=== PATIENT | male | born 1960 | race Two or more races ===

== ENCOUNTER → 2024-03-13 | Outpatient (CLI) | payer BC, SELFPAY ==
--- NOTE | 2024-03-13 14:11 | XR_ITS ---
Examination: Ribs, right, with PA chest, 5 views Technique: Chest PA, RIBS AP, RPO, LPO, AP coned lower ribs 5 views Exam date and time: March 13, 2024 1418 hours INDICATIONS: Right rib pain beginning one month ago Findings: Normal heart size No pneumothorax Moderate osteopenia No acute right rib fractures IMPRESSION: No pneumothorax pulmonary contusion or hemothorax No acute right rib fractures
--- NOTE | 2024-03-13 14:11 | XR_ITS ---
Examination: Thoracic spine 3 views Technique one AP lateral coned lateral upper dorsal spine 3 views Exam date and time: March 13, 2024 at work and 35 hours Comparison January 17, 2018 INDICATIONS: Back pain one month FINDINGS: Moderate osteopenia Upper thoracic dextroscoliosis 8 degrees No thoracic fracture Mild to moderate diffuse thoracic degenerative disc disease IMPRESSION: Mild to moderate diffuse thoracic degenerative disc disease
== END | disposition home or self-care (01) ==
PROVIDERS: PCP Physician Assistant; Referring Provider Physician Assistant; Visit Provider Physician Assistant
DX: R07.81 Pleurodynia (principal); M51.34 Other intervertebral disc degeneration, thoracic region
CPT/HCPCS: 71101; 72072

== ENCOUNTER → 2024-03-16 | Outpatient (CLI) | payer BC, SELFPAY ==
[2024-03-16 09:43] LABS: Alanine Aminotransferase 34 U/L (10-49); Albumin, Serum 4.5 gm/dL (3.4-4.8); Alkaline Phosphatase 50 U/L (46-116); Anion Gap 8 (7-16); Aspartate Amino Transferase 27 U/L (0-34); BUN/Creatinine Ratio 21 Ratio (12-20); Bilirubin,Total 0.6 mg/dL (0.3-1.2); Blood Urea Nitrogen 19 mg/dL (9-23); Calcium 9.9 mg/dL (8.3-10.6); Calcium (Corrected) 9.9 mg/dL (8.5-10.1); Carbon Dioxide 30.9 mMol/L (20.0-31.0); Cardiac Risk Estimate 3.9 RATIO (4.0-6.7); Chloride 105 mMol/L (98-107); Cholesterol 189 mg/dL (132-200); Creatinine (Component) 0.9 mg/dL (0.6-1.3); Globulin 2.2 gm/dL (2.3-3.5); Glucose 108 mg/dL (74-106); HDL Cholesterol 49 mg/dL (40-60); LDL Cholesterol,Calculated 116 mg/dL (0-130); Osmolality,Calculated 290 (275-295); Potassium 4.9 mMol/L (3.4-5.1); Sodium 144 mMol/L (136-145); Thyroid Stimulating Hormone 1.11 uIU/mL (0.55-4.78); Total Protein 6.7 gm/dL (5.7-8.2); Triglycerides 119 mg/dL (30-150); eGFR > 60 See Note
[2024-03-16 10:17] LABS: Glucose Estimated Average 123 mg/dL (80-131); Hemoglobin A1C 5.9 % Hgb (4.8-6.0)
[2024-03-18 19:52] LABS: BCR-ABL1/ABL1 % IS 0.102 (0.000)
[2024-03-19 06:27] LABS: P190 BCR-ABL1 NOT DETECTED; P210 BCR-ABL1 DETECTED
== END | disposition home or self-care (01) ==
PROVIDERS: PCP Physician Assistant; Referring Provider Physician Assistant; Visit Provider Internal Medicine Hematology & Oncology
DX: Z00.00 Encounter for general adult medical examination without abnormal findings (principal); R53.83 Other fatigue; E78.5 Hyperlipidemia, unspecified; D72.829 Elevated white blood cell count, unspecified
CPT/HCPCS: 36415; 80053; 80061; 81206; 81207; 83036; 84443

== ENCOUNTER → 2024-03-19 | Outpatient (CLI) | payer BC, SELFPAY ==
--- NOTE | 2024-03-19 16:00 | XR_ITS ---
Examination: Carotid arterial duplex scan, ultrasound. Date and time of exam: March 19, 2024 1600 hours INDICATIONS: Episodes of right-sided body weakness and pain beginning one month ago Technique: Multiple sonographic images have been obtained of the carotid arteries and vertebral arteries, B-mode/grayscale imaging and Doppler spectral analysis and color flow Peak systolic and diastolic velocities have been recorded. Systolic diastolic ratios have been calculated. Findings: Right peak systolic velocities: Distal internal carotid artery peak systolic velocity is 0.5 M/sec Proximal internal carotid artery peak systolic velocity is 0.9 M/sec Carotid bifurcation peak systolic velocity is 0.8 M/sec External carotid artery peak systolic velocity is 0.7 M/sec Vertebral artery flow is antegrade. Left peak systolic velocities: Distal internal carotid artery peak systolic velocity is 0.7 M/sec Proximal internal carotid artery peak systolic velocity is 0.9 M/sec Carotid bifurcation peak systolic velocity is 1.0 M/sec External carotid artery peak systolic velocity is 0.6 M/sec Vertebral artery flow is antegrade Doppler waveform analysis demonstrates no spectral broadening Impression: Right internal carotid artery demonstrates 0-10% stenosis. Left internal carotid artery demonstrates 0-10% stenosis.
== END | disposition home or self-care (01) ==
LOC: CDIM 03-20 07:21
PROVIDERS: Referring Provider Physician Assistant; Visit Provider Physician Assistant
DX: G25.1 Drug-induced tremor (principal); G81.91 Hemiplegia, unspecified affecting right dominant side
CPT/HCPCS: 93880

== ENCOUNTER → 2024-04-06 | Outpatient (CLI) | payer BC, SELFPAY ==
--- NOTE | 2024-04-06 10:30 | XR_ITS ---
Examination: MRI brain without intravenous contrast. Date and time of exam: April 06, 2024 1050 hours Comparison September 28, 2022 INDICATIONS: Hemiplegia right side tremor difficulty raising the right arm weakness in the right leg Technique: Multiple axial and sagittal images of the brain obtained. Siemens high-resolution 1.5 Marcela short bore scanners utilized. Sagittal sections, T1-weighted, TR 500, TE 14, are performed. Axial sections proton-density and T2-weighted have been obtained. Inversion recovery axial images, TR 9, 260, TE 111, TI 2500. Diffusion weighted images, axial sections, TR 4800, TE 128, B value 1000 Axial sections, ADC map, TR 4800, TE 128 Findings: Enlargement of the sella turcica is not present. The optic chiasm and infundibular are not remarkable. Prepontine and interpeduncular cisterns are not enlarged. There is no localized enlargement of the medulla or sherrell. Fourth ventricle and cerebellar tonsils appear normal in position. No subacute area of hemorrhage density is seen. Mass in the cerebellopontine angle region is not evident. Globes symmetrical. Orbital musculature including medial lateral rectus muscles do not exhibit abnormality. Diffusion-weighted images demonstrate no focus restricted diffusion Increased white matter signal small punctate foci increased signal in the right frontal white matter Mass effect upon the ventricular system is not identified. Impression: Small punctate foci increased signal in the right frontal white matter, accelerated chronic microvascular white matter change versus demyelinating disease, clinical correlation advised
== END | disposition home or self-care (01) ==
LOC: SMRI 10:05
PROVIDERS: PCP Physician Assistant; Referring Provider Physician Assistant; Visit Provider Physician Assistant
DX: R90.82 White matter disease, unspecified (principal)
CPT/HCPCS: 70551

== ENCOUNTER 2024-04-09 15:39 | Outpatient (RCR) | payer BC, SELFPAY ==
--- NOTE | 2024-04-12 22:09 | CTCFLWUP_ITS ---
Patient: LOUIS DAMIAN : 1960 Page 4 of 5 FOLLOW UP NOTE DATE OF SERVICE: 04/12/2024 NAME: LOUIS DAMIAN ACCOUNT: [id number] : 1960 AGE: 63 INTERVAL HISTORY: Patient doing well. On detailed history taking patient endorses that he has not been taking his medication he takes medicines on certain days. He also has been drinking alcohol. ONCOLOGY HISTORY: DIAGNOSIS: Elevated white blood cell count, unspecified(leukocytosis) [ICD10] D72.829 DATE OF DIAGNOSIS: 09/27/2017 STAGE/TNM: BCR-ABL level was 76.681 and WBC count was 1 44,000 TREATMENT HISTORY: Care?Plan Start?Date Cycle Day Intent HISTORY OF PRESENT ILLNESS: Louis Lara is a 63-year-old Yoruba-speaking male who is apparently having bilateral upper quadrant pain for last 4 years. He had a CBC drawn on 09/12/2017 which showed his WBC count to be 142.7 with an absolute neutrophil count of 87,000. Peripheral smear showed metamyelocytes, myelocytes and promyelocytes. On 09/27/2017 patient was seen at [facility] emergency room because of the chest pain. He was found to have atrial fibrillation with rapid ventricular response which was converted with beta blockers. His white count was noted to be 201,000's. Dr. Fritz medical oncologist was consulted who thought the patient may have CML. Patient was started on hydroxyurea thousand milligrams p.o. daily along with allopurinol 300 mg p.o. daily. 10/08/2017: CBC showed a WBC count of 144,000 with an absolute neutrophil count of 86.4 thousand. Hemoglobin was 12.5 and platelet count is 205,000. Peripheral smear again showed metamyelocytes, myelocytes and promyelocytes. Dr. Doll radiation oncology saw the patient recently and continue the hydroxyurea. Patient is to currently taking hydroxyurea 1 g p.o. Daily. 10/17/2017: % BCR?ABL 1/ABL 1 (IS) 76.681 10/17/2017: Bone marrow biopsy and aspiration A. Peripheral blood smear, pathologist review: - Profound leukocytosis with neutrophilia and a left shift, consistent with chronic myeloid leukemia - Rare blasts present, <1% - Eosinophilia and basophilia with an unremarkable morphology - Mild normocytic normochromic anemia and mild anisocytosis Bone Marrow, aspiration with core biopsy: - Chronic myeloid leukemia, BCR-ABL1 positive, chronic phase (see comment) - Iron storage decreased Comment: BCR-ABL1 Translocation t(9;22) with major break point p210 ls detected. Karyotyplng reports no metaphase cells are available for analysls. Flow cytometry also supports the above diagnosis. 10/30/2017: Sprycel 100 mg p.o. daily was ordered. BCR?ABL 1 transcript level: 10/17/2017: 76.681% 02/05/2018: BCR/ABL transcript levels: e14a2(b3a2) transcript 0.8672%, 04/04/2018: BCR/ABL transcript levels: e14a2(b3a2) transcript 3.6122%, 07/04/2018: BCR/ABL E14a2 (b3a2) transcript 0.7098%, 09/09/2018: BCR/ABL E14a2 (b3a2) transcript level less than 0.0032%, 10/29/2018: BCR/ABL transcript levels: transcript level 0.1761%, 04/20/2019: BCR/ABL transcript level 0.1951% 07/17/2019: FISH test for BCR/ABL gene rearrangement is negative. Unfortunately quantitative PCR test for BCR/ABL fusion gene levels is not done. 07/28/2019: EK AG? 07/28/2019: Chest x-ray PA and lateral views? 09/08/2019: BCR/ABL e13a2 (b2a2) <0.0032%, e14a2 (b3a2) 0.2627%, e1a2 <0.0032%. 12/15/2019: BCR/ABL by FISH showed 29% of the nuclei positive for BCR?ABL 1 gene fusion signals. Patient stopped taking Sprycel 2-1/2 months prior to this test. He just stopped taking Sprycel because he was feeling good. He did not have any other explanation. Patient started taking again on 12/15/2019. 03/22/2020: BCR/ABL e13a2 (b2a2) 0.0213%, e14a2 (b3a2) 0.1192%, e1a2 <0.0032%. 06/24/2020:. : BCR/ABL e13a2 (b2a2) 0.0153%, e14a2 (b3a2) 0.0766%, e1a2 <0.0032%. 07/12/2020: Mr. Damian was complaining fatigue, shortness of breath of 2 to 3 weeks duration. Chest x-ray, EKG and echocardiogram were normal. 08/01/2020: Sprycel was decreased to 70 mg p.o. daily 08/26/2020: : BCR/ABL e13a2 (b2a2) 0.0032%, e14a2 (b3a2) 0.0608%, e1a2 <0.0032%. 10/07/2020: : BCR/ABL e13a2 (b2a2) 0.0032%, e14a2 (b3a2) 0.1956%, e1a2 <0.0032%. 12/27/2020: : BCR/ABL e13a2 (b2a2) 0.0032%, e14a2 (b3a2) 0.2948%, e1a2 <0.0032%. 01/23/2021: Sprycel increased 100 mg p.o. daily. 03/01/2021: Sprycel was discontinued due to bilateral eye redness, itching, dryness, blurry vision. 03/04/2021: Bilateral redness of the eye resolved. 03/24/2021: BCR/ABL e13a2 less than 0.0032%, e14a20.0559%, E182 less than 0.0032%. 04/03/2021: Patient was started on imatinib 400 mg p.o. daily. 05/14/2021: Imatinib discontinued due to persistent diarrhea and abdominal pain. 05/16/2021: Sprycel 70 mg p.o. daily started. 05/18/2021: BCR/ABL 1 kinase domain did not show any mutations. 11/02/2021: e14a2 transcript 0.3032%. 01/08/2022: FISH normal. No BCR or ABL 1 gene rearrangement observed. 04/17/2022: e14a2 transcript 0.2242% 07/12/2022: e14a2 transcript 0.2998%. 10/15/2022: e14a2 transcrit 0.2719 10/31/2022: Sprycel 70 mg was discontinued due to persistently elevated BCR/ABL transcript levels. 11/23/2022: Patient was started on Tasigna 300 mg p.o. twice daily. 12/10/2022: Mr. Damian stopped taking Tasigna due to persistent headaches, stomach pains blurring of vision, constipation as well as joint pains. 10/11/2023: BCR/ABL transcript levels negative. (Less than 0.0032%) 10/24/2023 MRI of the lumbar spine with IV contrast 10/29/2023: CT scan of the chest abdomen and pelvis with and without contrast PAST MEDICAL HISTORY: OTHER MEDICAL HISTORY/CONDITIONS: FAMILY HISTORY: SOCIAL HISTORY: MEDICATIONS: 1. multivitamin - 1 tab Daily 2. naproxen - 375 mg 1 tab Twice a Day 3. omeprazole - 20 mg 1 Daily 4. SpryceL - 70 mg 1 tab Daily Medications Last Reconciled by Marion Salamanca MA on 04/09/2024 ALLERGIES: No Known Drug Allergies REVIEW OF SYSTEMS: A complete 14-point review of systems was performed and is negative except as noted in interval history. PHYSICAL EXAMINATION: VITAL SIGNS: GENERAL APPEARANCE: Appears well, in no apparent distress, appropriately interactive. HEENT: Normocephalic, no temporal wasting, normal conjunctiva, no scleral icterus, normal hearing, lips without lesions, neck normal range of motion. CARDIOVASCULAR: Not assessed. PULMONARY: Normal respiratory effort, no respiratory distress or use of accessory muscles, speaking in full sentences, no tachypnea. EXTREMITIES: No pedal edema or cyanosis. SKIN: Normal skin appearance. NEUROLOGIC: Alert and oriented x4. PSHYCHIATRIC: Appropriate affect, mood normal, behavior normal, intact thought and speech. LABORATORY DATA: I have personally reviewed and interpreted each of the patient?s relevant lab tests, abnormal findings are below: Date 03/16/24 ??GLUCOSE,RANDOM?(mg/dL) 108?H ??BLOOD?UREA?NITROGEN?(mg/dL) 19 ??CREATININE?(mg/dL) 0.90 ??SODIUM?(mmol/L) 144 ??POTASSIUM?(mmol/L) 4.9 ??CHLORIDE?(mmol/L) 105 ??CrCl?(CandG)?(ml/min) 87.41 ??AST/SGOT?(Unit/L) 27 ??ALT/SGPT?(Unit/L) 34 ??ALKALINE?PHOSPHATASE?(Unit/L) 50 ??BILIRUBIN,?TOTAL?(mg/dL) 0.6 ??PROTEIN?TOTAL?(gm/dl) 6.7 ??ALBUMIN,?SERUM?(gm/dl) 4.5 ??GLOBULIN?(gm/dl) 2.2?L ??ALBUMIN/GLOBULIN?RATIO 2.0 ??CALCIUM,?SERUM?(mg/dL) 9.9 ??CALCIUM?SERUM?(CORRECTED)?(mg/dL) 9.9 ASSESSMENT/PLAN: BCR/ABL transcript level 0.102 Patient have baseline tremors at rest. According to the Mr. Damian probably has Parkinson's disease as per neurologist. The patient started taking Tasigna 300 mg p.o. twice daily on 11/23/2022. He decided to stop taking Tasigna on 12/10/2022 due to headaches, stomach pains, blurring of vision, constipation as well as joint pains. His BCR/ABL e14a2 transcript level 0.2719% on 10/15/2022. Sprycel 70 mg p.o. daily was discontinued due to persistently currently on Sprycel 70 mg p.o. daily. He has not been compliant with his medication Patient says he want to start taking his Sprycel as prescribed Do not want to do bone marrow biopsy Will do mutation testing on peripheral blood Advised to come back in 3 to 4 weeks to repeat BCR-ABL level unable to tolerate imatinib also. Chronic phase CML. Continue Sprycel 70 mg p.o. daily. CBC CMP BCR-ABL RETURN TO CLINIC: 3 to 4 weeks BILLING AND COMPLIANCE: I reviewed external records from providers outside my specialty as summarized above. I spent a total of 50 minutes on this patient?s care on the day of their visit excluding time spent related to any billed procedures. This time includes time spent with the patient as well as time spent documenting in the medical record, reviewing patients records and tests, obtaining history, placing orders, communicating with other healthcare professionals, counseling the patient, family or caregiver, and/or care coordination for the diagnoses above. Electronically Signed by: Juancarlos Carlos MD T: 10:07 PM CC: Christal?Keila? PCP: Christal Pedraza Referring: Christal Pedraza This document was completed utilizing speech recognition software. Grammatical errors, random word insertions, pronoun errors, and incomplete sentences are an occasional consequence of this system due to software limitations, ambient noise, and hardware issues. Any formal questions or concerns about the content, text or information contained within the body of this dictation should be directly addressed to the provider for clarification.
== END 2024-04-10 23:59 | disposition home or self-care (01) ==
LOC: SCTC 15:39
PROVIDERS: PCP Physician Assistant; Referring Provider Physician Assistant; Visit Provider Internal Medicine Hematology & Oncology
DX: D72.829 Elevated white blood cell count, unspecified (principal)
CPT/HCPCS: 99212; G0463

== ENCOUNTER → 2024-05-12 | Outpatient (CLI) | payer BC, SELFPAY ==
[2024-05-12 10:56] LABS: Basophils % (Auto) 0 % (0-2.5); Eosinophils # (Auto) 0.2 Thou/mm3 (0.0-0.5); Eosinophils % (Auto) 4 % (0-10); Hematocrit 36.8 % (41.0-53.0); Hemoglobin 12.7 g/dL (13.5-16.0); Immature Granulocytes % (Auto) 0 % (0-0); Immature Granulocytes Auto 0.01 Thou/mm3 (0.00-0.00); Lymphocytes # (Auto) 1.5 Thou/mm3 (1.0-4.8); Lymphocytes % (Auto) 31 % (10-50); Mean Corpuscular HGB Conc 34.5 g/dl (31.0-37.0); Mean Corpuscular Hemoglobin 31.4 pg (25.0-35.0); Mean Corpuscular Volume 91 fL (80-100); Monocytes # (Auto) 0.6 Thou/mm3 (0.0-0.8); Monocytes % (Auto) 12 % (0-12); Neutrophils # (Auto) 2.5 Thou/mm3 (1.8-7.7); Neutrophils % (Auto) 53 % (37-80); Nucleated Red Blood Cell % 0 /100 WBC (0); Platelet Count 188 Thou/mm3 (140-440); RDW Standard Deviation 43.5 fL (35.1-43.9); Red Blood Count 4.04 Miln/mm3 (4.50-5.90); White Blood Count 4.8 Thou/mm3 (3.8-10.6)
[2024-05-12 11:06] LABS: Alanine Aminotransferase 41 U/L (10-49); Albumin, Serum 4.4 gm/dL (3.4-4.8); Albumin/Globulin Ratio 2.1 (1.2-2.2); Alkaline Phosphatase 43 U/L (46-116); Anion Gap 7 (7-16); Aspartate Amino Transferase 31 U/L (0-34); BUN/Creatinine Ratio 18 Ratio (12-20); Bilirubin,Total 0.5 mg/dL (0.3-1.2); Blood Urea Nitrogen 14 mg/dL (9-23); Calcium 9.4 mg/dL (8.3-10.6); Calcium (Corrected) 9.4 mg/dL (8.5-10.1); Carbon Dioxide 29.3 mMol/L (20.0-31.0); Chloride 109 mMol/L (98-107); Creatinine (Component) 0.8 mg/dL (0.6-1.3); Globulin 2.1 gm/dL (2.3-3.5); Glucose 118 mg/dL (74-106); Osmolality,Calculated 290 (275-295); Potassium 4.3 mMol/L (3.4-5.1); Sodium 145 mMol/L (136-145); Total Protein 6.5 gm/dL (5.7-8.2); eGFR > 60 See Note
[2024-05-15 23:35] LABS: BCR-ABL1/ABL1 % IS 0.034 (0.000)
[2024-05-18 06:49] LABS: P210 BCR-ABL1 DETECTED
== END | disposition home or self-care (01) ==
LOC: SCTO 09:19
PROVIDERS: PCP Physician Assistant; Referring Provider Internal Medicine Hematology & Oncology; Visit Provider Internal Medicine Hematology & Oncology
DX: D72.829 Elevated white blood cell count, unspecified (principal)
CPT/HCPCS: 36415; 80053; 81206; 85025

== ENCOUNTER 2024-05-18 15:51 | Outpatient (RCR) | payer BC, SELFPAY ==
--- NOTE | 2024-06-01 00:12 | CTCFLWUP_ITS ---
Patient: LOUIS DAMIAN : 1960 Page 4 of 6 FOLLOW UP NOTE DATE OF SERVICE: 05/18/2024 NAME: LOUIS DAMIAN ACCOUNT: [id number] : 1960 AGE: 63 INTERVAL HISTORY: Patient doing well. On detailed history taking patient endorses that he has not been taking his medication he takes medicines on certain days. He also has been drinking alcohol. ONCOLOGY HISTORY:?[facility] On[facility] Hx? DIAGNOSIS: Elevated white blood cell count, unspecified(leukocytosis) [ICD10] D72.829 DATE OF DIAGNOSIS: 09/27/2017 STAGE/TNM: BCR-ABL level was 76.681 and WBC count was 1 44,000 TREATMENT HISTORY: Care?Plan Start?Date Cycle Day Intent HISTORY OF PRESENT ILLNESS: Louis Lara is a 63-year-old Kinyarwanda-speaking male who is apparently having bilateral upper quadrant pain for last 4 years. He had a CBC drawn on 09/12/2017 which showed his WBC count to be 142.7 with an absolute neutrophil count of 87,000. Peripheral smear showed metamyelocytes, myelocytes and promyelocytes. On 09/27/2017 patient was seen at [facility] emergency room because of the chest pain. He was found to have atrial fibrillation with rapid ventricular response which was converted with beta blockers. His white count was noted to be 201,000's. Dr. Fritz medical oncologist was consulted who thought the patient may have CML. Patient was started on hydroxyurea thousand milligrams p.o. daily along with allopurinol 300 mg p.o. daily. 10/08/2017: CBC showed a WBC count of 144,000 with an absolute neutrophil count of 86.4 thousand. Hemoglobin was 12.5 and platelet count is 205,000. Peripheral smear again showed metamyelocytes, myelocytes and promyelocytes. Dr. Doll radiation oncology saw the patient recently and continue the hydroxyurea. Patient is to currently taking hydroxyurea 1 g p.o. Daily. 10/17/2017: % BCR?ABL 1/ABL 1 (IS) 76.681 10/17/2017: Bone marrow biopsy and aspiration A. Peripheral blood smear, pathologist review: - Profound leukocytosis with neutrophilia and a left shift, consistent with chronic myeloid leukemia - Rare blasts present, <1% - Eosinophilia and basophilia with an unremarkable morphology - Mild normocytic normochromic anemia and mild anisocytosis Bone Marrow, aspiration with core biopsy: - Chronic myeloid leukemia, BCR-ABL1 positive, chronic phase (see comment) - Iron storage decreased Comment: BCR-ABL1 Translocation t(9;22) with major break point p210 ls detected. Karyotyplng reports no metaphase cells are available for analysls. Flow cytometry also supports the above diagnosis. 10/30/2017: Sprycel 100 mg p.o. daily was ordered. BCR?ABL 1 transcript level: 10/17/2017: 76.681% 02/05/2018: BCR/ABL transcript levels: e14a2(b3a2) transcript 0.8672%, 04/04/2018: BCR/ABL transcript levels: e14a2(b3a2) transcript 3.6122%, 07/04/2018: BCR/ABL E14a2 (b3a2) transcript 0.7098%, 09/09/2018: BCR/ABL E14a2 (b3a2) transcript level less than 0.0032%, 10/29/2018: BCR/ABL transcript levels: transcript level 0.1761%, 04/20/2019: BCR/ABL transcript level 0.1951% 07/17/2019: FISH test for BCR/ABL gene rearrangement is negative. Unfortunately quantitative PCR test for BCR/ABL fusion gene levels is not done. 07/28/2019: EK AG? 07/28/2019: Chest x-ray PA and lateral views? 09/08/2019: BCR/ABL e13a2 (b2a2) <0.0032%, e14a2 (b3a2) 0.2627%, e1a2 <0.0032%. 12/15/2019: BCR/ABL by FISH showed 29% of the nuclei positive for BCR?ABL 1 gene fusion signals. Patient stopped taking Sprycel 2-1/2 months prior to this test. He just stopped taking Sprycel because he was feeling good. He did not have any other explanation. Patient started taking again on 12/15/2019. 03/22/2020: BCR/ABL e13a2 (b2a2) 0.0213%, e14a2 (b3a2) 0.1192%, e1a2 <0.0032%. 06/24/2020:. : BCR/ABL e13a2 (b2a2) 0.0153%, e14a2 (b3a2) 0.0766%, e1a2 <0.0032%. 07/12/2020: Mr. Damian was complaining fatigue, shortness of breath of 2 to 3 weeks duration. Chest x-ray, EKG and echocardiogram were normal. 08/01/2020: Sprycel was decreased to 70 mg p.o. daily 08/26/2020: : BCR/ABL e13a2 (b2a2) 0.0032%, e14a2 (b3a2) 0.0608%, e1a2 <0.0032%. 10/07/2020: : BCR/ABL e13a2 (b2a2) 0.0032%, e14a2 (b3a2) 0.1956%, e1a2 <0.0032%. 12/27/2020: : BCR/ABL e13a2 (b2a2) 0.0032%, e14a2 (b3a2) 0.2948%, e1a2 <0.0032%. 01/23/2021: Sprycel increased 100 mg p.o. daily. 03/01/2021: Sprycel was discontinued due to bilateral eye redness, itching, dryness, blurry vision. 03/04/2021: Bilateral redness of the eye resolved. 03/24/2021: BCR/ABL e13a2 less than 0.0032%, e14a20.0559%, E182 less than 0.0032%. 04/03/2021: Patient was started on imatinib 400 mg p.o. daily. 05/14/2021: Imatinib discontinued due to persistent diarrhea and abdominal pain. 05/16/2021: Sprycel 70 mg p.o. daily started. 05/18/2021: BCR/ABL 1 kinase domain did not show any mutations. 11/02/2021: e14a2 transcript 0.3032%. 01/08/2022: FISH normal. No BCR or ABL 1 gene rearrangement observed. 04/17/2022: e14a2 transcript 0.2242% 07/12/2022: e14a2 transcript 0.2998%. 10/15/2022: e14a2 transcrit 0.2719 10/31/2022: Sprycel 70 mg was discontinued due to persistently elevated BCR/ABL transcript levels. 11/23/2022: Patient was started on Tasigna 300 mg p.o. twice daily. 12/10/2022: Mr. Damian stopped taking Tasigna due to persistent headaches, stomach pains blurring of vision, constipation as well as joint pains. 10/11/2023: BCR/ABL transcript levels negative. (Less than 0.0032%) 10/24/2023 MRI of the lumbar spine with IV contrast 10/29/2023: CT scan of the chest abdomen and pelvis with and without contrast PAST MEDICAL HISTORY: OTHER MEDICAL HISTORY/CONDITIONS: FAMILY HISTORY: ?[facility] Hx? SOCIAL HISTORY: MEDICATIONS: 1. multivitamin - 1 tab Daily 2. naproxen - 375 mg 1 tab Twice a Day 3. omeprazole - 20 mg 1 Daily 4. SpryceL - 70 mg 1 tab Daily?Pal[facility]ra Meds? Medications Last Reconciled by Marion Salamanca MA on 05/18/2024 ALLERGIES: No Known Drug Allergies REVIEW OF SYSTEMS: A complete 14-point review of systems was performed and is negative except as noted in interval history. PHYSICAL EXAMINATION:?[facility] PE? VITAL SIGNS: PAIN: 0 - No pain GENERAL APPEARANCE: Appears well, in no apparent distress, appropriately interactive. HEENT: Normocephalic, no temporal wasting, normal conjunctiva, no scleral icterus, normal hearing, lips without lesions, neck normal range of motion. CARDIOVASCULAR: Not assessed. PULMONARY: Normal respiratory effort, no respiratory distress or use of accessory muscles, speaking in full sentences, no tachypnea. EXTREMITIES: No pedal edema or cyanosis. SKIN: Normal skin appearance. NEUROLOGIC: Alert and oriented x4. PSHYCHIATRIC: Appropriate affect, mood normal, behavior normal, intact thought and speech. LABORATORY DATA: I have personally reviewed and interpreted each of the patient?s relevant lab tests, abnormal findings are below: Date 10/24/23 03/16/24 05/12/24 ??WHITE?BLOOD?COUNT?(Thou/mm3) 6.6 ? 4.8 ??RED?BLOOD?COUNT?(Miln/mm3) 4.13?L ? 4.04?L ??HEMOGLOBIN?(gm/dl) 12.8?L ? 12.7?L ??HEMATOCRIT?(%) 37.6?L ? 36.8?L ??PLATELET?COUNT?(Thou/mm3) 210 ? 188 ??NEUTROPHILS?%,?AUTO?(%) 59 ? 53 ??LYMPH?%,?AUTO?(%) 26 ? 31 ??NEUTROPHILS,?AUTO?(Thou/mm3) 3.9 ? 2.5 ??GLUCOSE,RANDOM?(mg/dL) ? 108?H 118?H ??BLOOD?UREA?NITROGEN?(mg/dL) ? 19 14 ??CREATININE?(mg/dL) ? 0.90 0.80 ??SODIUM?(mmol/L) ? 144 145 ??POTASSIUM?(mmol/L) ? 4.9 4.3 ??CHLORIDE?(mmol/L) ? 105 109?H ??CrCl?(CandG)?(ml/min) ? 87.41 98.83 ??AST/SGOT?(Unit/L) ? 27 31 ??ALT/SGPT?(Unit/L) ? 34 41 ??ALKALINE?PHOSPHATASE?(Unit/L) ? 50 43?L ??BILIRUBIN,?TOTAL?(mg/dL) ? 0.6 0.5 ??PROTEIN?TOTAL?(gm/dl) ? 6.7 6.5 ??ALBUMIN,?SERUM?(gm/dl) ? 4.5 4.4 ??GLOBULIN?(gm/dl) ? 2.2?L 2.1?L ??ALBUMIN/GLOBULIN?RATIO ? 2.0 2.1 ??CALCIUM,?SERUM?(mg/dL) ? 9.9 9.4 ??CALCIUM?SERUM?(CORRECTED)?(mg/dL) ? 9.9 9.4 ASSESSMENT/PLAN:?[facility] Assessment/Plan? BCR/ABL transcript level 0.102 Patient have baseline tremors at rest. According to the Mr. Damian probably has Parkinson's disease as per neurologist. The patient started taking Tasigna 300 mg p.o. twice daily on 11/23/2022. He decided to stop taking Tasigna on 12/10/2022 due to headaches, stomach pains, blurring of vision, constipation as well as joint pains. His BCR/ABL e14a2 transcript level 0.2719% on 10/15/2022. Sprycel 70 mg p.o. daily was discontinued due to persistently currently on Sprycel 70 mg p.o. daily. He has not been compliant with his medication Patient says he want to start taking his Sprycel as prescribed Do not want to do bone marrow biopsy Will do mutation testing on peripheral blood Advised to come back in 3 to 4 weeks to repeat BCR-ABL level unable to tolerate imatinib also. Chronic phase CML. Continue Sprycel 70 mg p.o. daily. CBC CMP BCR-ABL RETURN TO CLINIC: BILLING AND COMPLIANCE: I reviewed external records from providers outside my specialty as summarized above. I spent a total of 50 minutes on this patient?s care on the day of their visit excluding time spent related to any billed procedures. This time includes time spent with the patient as well as time spent documenting in the medical record, reviewing patients records and tests, obtaining history, placing orders, communicating with other healthcare professionals, counseling the patient, family or caregiver, and/or care coordination for the diagnoses above. Electronically Signed by: Juancarlos Carlos MD T: 12:10 AM CC: Christal?Keila? PCP: Christal Pedraza Referring: Christal Pedraza This document was completed utilizing speech recognition software. Grammatical errors, random word insertions, pronoun errors, and incomplete sentences are an occasional consequence of this system due to software limitations, ambient noise, and hardware issues. Any formal questions or concerns about the content, text or information contained within the body of this dictation should be directly addressed to the provider for clarification.
== END 2024-06-08 23:59 | disposition home or self-care (01) ==
LOC: SCTC 15:51
PROVIDERS: PCP Physician Assistant; Referring Provider Physician Assistant; Visit Provider Internal Medicine Hematology & Oncology
DX: C92.10 Chronic myeloid leukemia, BCR/ABL-positive, not having achieved remission (principal)
CPT/HCPCS: 99212; G0463

== ENCOUNTER → 2024-06-16 | Outpatient (CLI) | payer BC, SELFPAY ==
--- NOTE | 2024-06-16 12:30 | XR_ITS ---
EXAMINATION: PET/CT FUSION SKULL TO THIGH EXAM DATE AND TIME: June 16, 2024 1309 hrs. Comparison MRI brain April 06, 2024, CT chest October 29, 2023 Diagnosis lymphocytosis, leukemia restaging post treatment CTDI:vol (mGy) 7.34 DLP: (mGycm) 761.8 PROCEDURE: 16.6 mCi FDG was administered intravenously To allow for distribution and uptake of radiotracer, the patient was allowed to rest quietly in a shielded room. Imaging was performed on an integrated 16-slice PET/CT scanner, with scanning from the skull base to the mid thigh. Serum blood glucose at the time of the injection was measured 106 mg/dL. CT scanning was performed without oral or intravenous contrast material. FINDINGS: Head and Neck: There is no fior hypermetabolism in the neck. The visualized portions of the brain are normal in appearance on CT. Chest: There is no fior hypermetabolism in the chest. There are no pulmonary nodules. Abdomen and Pelvis: There is no fior hypermetabolism in retroperitoneal or pelvic chains. The spleen is normal in size and FDG avidity. Suspicious for mild right varicocele Fat-containing hernia Musculoskeletal: Marrow uptake is within normal range. IMPRESSION: No mediastinal, abdominal or pelvic lymphadenopathy
== END | disposition home or self-care (01) ==
PROVIDERS: Referring Provider Internal Medicine Hematology & Oncology; Visit Provider Internal Medicine Hematology & Oncology
DX: D72.829 Elevated white blood cell count, unspecified (principal)
CPT/HCPCS: 78815; A9552

== ENCOUNTER → 2024-07-22 | Outpatient (CLI) | payer BC, SELFPAY ==
[2024-07-22 09:25] LABS: Basophils % (Auto) 0 % (0-2.5); Eosinophils # (Auto) 0.2 Thou/mm3 (0.0-0.5); Eosinophils % (Auto) 4 % (0-10); Hematocrit 36.1 % (41.0-53.0); Hemoglobin 12.3 g/dL (13.5-16.0); Immature Granulocytes % (Auto) 0 % (0-0); Immature Granulocytes Auto 0.01 Thou/mm3 (0.00-0.00); Lymphocytes # (Auto) 1.5 Thou/mm3 (1.0-4.8); Lymphocytes % (Auto) 30 % (10-50); Mean Corpuscular HGB Conc 34.1 g/dl (31.0-37.0); Mean Corpuscular Volume 91 fL (80-100); Monocytes # (Auto) 0.6 Thou/mm3 (0.0-0.8); Monocytes % (Auto) 12 % (0-12); Neutrophils # (Auto) 2.5 Thou/mm3 (1.8-7.7); Neutrophils % (Auto) 53 % (37-80); Nucleated Red Blood Cell % 0 /100 WBC (0); Platelet Count 189 Thou/mm3 (140-440); RDW Standard Deviation 43.5 fL (35.1-43.9); Red Blood Count 3.97 Miln/mm3 (4.50-5.90); White Blood Count 4.8 Thou/mm3 (3.8-10.6)
[2024-07-22 09:26] LABS: Glucose Estimated Average 108 mg/dL (80-131); Hemoglobin A1C 5.4 % Hgb (4.8-6.0)
[2024-07-22 09:28] LABS: Alanine Aminotransferase 47 U/L (10-49); Albumin, Serum 4.4 gm/dL (3.4-4.8); Albumin/Globulin Ratio 1.8 (1.2-2.2); Alkaline Phosphatase 50 U/L (46-116); Anion Gap 9 (7-16); Aspartate Amino Transferase 33 U/L (0-34); BUN/Creatinine Ratio 18 Ratio (12-20); Bilirubin,Total 0.4 mg/dL (0.3-1.2); Blood Urea Nitrogen 16 mg/dL (9-23); Calcium 8.8 mg/dL (8.3-10.6); Calcium (Corrected) 8.8 mg/dL (8.5-10.1); Carbon Dioxide 28.1 mMol/L (20.0-31.0); Chloride 107 mMol/L (98-107); Creatinine (Component) 0.9 mg/dL (0.6-1.3); Globulin 2.5 gm/dL (2.3-3.5); Glucose 123 mg/dL (74-106); LDH (Lactate Dehydrogenase) 180 U/L (120-246); Osmolality,Calculated 289 (275-295); Potassium 4.4 mMol/L (3.4-5.1); Sodium 144 mMol/L (136-145); Total Protein 6.9 gm/dL (5.7-8.2); Uric Acid 3.6 mg/dL (3.7-9.2); eGFR > 60 See Note
[2024-07-25 19:48] LABS: BCR-ABL1/ABL1 % IS 0.038 (0.000)
[2024-07-27 07:33] LABS: P210 BCR-ABL1 DETECTED
== END | disposition home or self-care (01) ==
LOC: COPL 08:22
PROVIDERS: PCP Physician Assistant; Referring Provider Physician Assistant; Visit Provider Internal Medicine Hematology & Oncology
DX: D72.829 Elevated white blood cell count, unspecified (principal); R73.03 Prediabetes
CPT/HCPCS: 36415; 80053; 81206; 83036; 83615; 84550; 85025

== ENCOUNTER 2024-08-24 15:45 | Outpatient (RCR) | payer BC, SELFPAY ==
--- NOTE | 2024-08-25 00:09 | CTCFLWUP_ITS ---
Patient: LOUIS DAMIAN : 1960 Page 6 of 7 FOLLOW UP NOTE DATE OF SERVICE: 08/24/2024 NAME: LOUIS DAMIAN ACCOUNT: [id number] : 1960 AGE: 64 INTERVAL HISTORY: Subjective: Chief Complaint Follow-up for chronic myeloid leukemia (CML) treatment with Sprycel History of Present Illness Louis Damian is a male patient with a history of chronic myeloid leukemia (CML) presenting for follow-up. He has been prescribed Sprycel for his CML management. The patient's medication adherence has improved since the last visit. Previously, he was not taking his medications regularly due to fear, but now he is taking Sprycel every day as prescribed. His BCR-ABL level has decreased from 0.1 to 0.038, suggesting a positive response to treatment. The patient reports having varicocele , which were incidentally noted on a recent imaging study. He is scheduled for a laparoscopy and colonoscopy tomorrow morning. Regarding his gastrointestinal health, the patient was previously taking omeprazole for stomach issues. However, his doctor changed the medication to cimetidine due to concerns about calcium absorption. The patient now takes cimetidine at 7 AM and Sprycel at 1 or 2 PM to avoid potential drug interactio ns. He also takes calcium with vitamin D supplements at 9 AM with his breakfast. Medications and Supplements - Sprycel - Taking every day - Used for CML treatment - Omeprazole - Previously taken for stomach issues - Discontinued due to concerns about calcium absorption - Cimetidine - Taking at 7 a.m. - Replaced omeprazole - Calcium with Vitamin D - Taking daily - Multivitamins - Taking at 9 a.m. with breakfast Review of Systems Gastrointestinal: Positive for stomach issues (implied by use of omeprazole). Objective: Laboratory, Imaging, and Diagnostic Test Results - Date: July 2024 - BCR-ABL: 5.038% - Previous results: - BCR-ABL: 0.1%, 0.034%, 0.038% (dates not specified) - DaTscan: Negative (date not specified) ONCOLOGY HISTORY: DIAGNOSIS: Elevated white blood cell count, unspecified(leukocytosis) [ICD10] D72.829 DATE OF DIAGNOSIS: 09/27/2017 STAGE/TNM: BCR-ABL level was 76.681 and WBC count was 1 44,000 TREATMENT HISTORY: Care?Plan Start?Date Cycle Day Intent HISTORY OF PRESENT ILLNESS: Louis Lara is a 64-year-old Kinyarwanda-speaking male who is apparently having bilateral upper quadrant pain for last 4 years. He had a CBC drawn on 09/12/2017 which showed his WBC count to be 142.7 with an absolute neutrophil count of 87,000. Peripheral smear showed metamyelocytes, myelocytes and promyelocytes. On 09/27/2017 patient was seen at [facility] emergency room because of the chest pain. He was found to have atrial fibrillation with rapid ventricular response which was converted with beta blockers. His white count was noted to be 201,000's. Dr. Fritz medical oncologist was consulted who thought the patient may have CML. Patient was started on hydroxyurea thousand milligrams p.o. daily along with allopurinol 300 mg p.o. daily. 10/08/2017: CBC showed a WBC count of 144,000 with an absolute neutrophil count of 86.4 thousand. Hemoglobin was 12.5 and platelet count is 205,000. Peripheral smear again showed metamyelocytes, myelocytes and promyelocytes. Dr. Doll radiation oncology saw the patient recently and continue the hydroxyurea. Patient is to currently taking hydroxyurea 1 g p.o. Daily. 10/17/2017: % BCR?ABL 1/ABL 1 (IS) 76.681 10/17/2017: Bone marrow biopsy and aspiration A. Peripheral blood smear, pathologist review: - Profound leukocytosis with neutrophilia and a left shift, consistent with chronic myeloid leukemia - Rare blasts present, <1% - Eosinophilia and basophilia with an unremarkable morphology - Mild normocytic normochromic anemia and mild anisocytosis Bone Marrow, aspiration with core biopsy: - Chronic myeloid leukemia, BCR-ABL1 positive, chronic phase (see comment) - Iron storage decreased Comment: BCR-ABL1 Translocation t(9;22) with major break point p210 ls detected. Karyotyplng reports no metaphase cells are available for analysls. Flow cytometry also supports the above diagnosis. 10/30/2017: Sprycel 100 mg p.o. daily was ordered. BCR?ABL 1 transcript level: 10/17/2017: 76.681% 02/05/2018: BCR/ABL transcript levels: e14a2(b3a2) transcript 0.8672%, 04/04/2018: BCR/ABL transcript levels: e14a2(b3a2) transcript 3.6122%, 07/04/2018: BCR/ABL E14a2 (b3a2) transcript 0.7098%, 09/09/2018: BCR/ABL E14a2 (b3a2) transcript level less than 0.0032%, 10/29/2018: BCR/ABL transcript levels: transcript level 0.1761%, 04/20/2019: BCR/ABL transcript level 0.1951% 07/17/2019: FISH test for BCR/ABL gene rearrangement is negative. Unfortunately quantitative PCR test for BCR/ABL fusion gene levels is not done. 07/28/2019: EK AG? 07/28/2019: Chest x-ray PA and lateral views? 09/08/2019: BCR/ABL e13a2 (b2a2) <0.0032%, e14a2 (b3a2) 0.2627%, e1a2 <0.0032%. 12/15/2019: BCR/ABL by FISH showed 29% of the nuclei positive for BCR?ABL 1 gene fusion signals. Patient stopped taking Sprycel 2-1/2 months prior to this test. He just stopped taking Sprycel because he was feeling good. He did not have any other explanation. Patient started taking again on 12/15/2019. 03/22/2020: BCR/ABL e13a2 (b2a2) 0.0213%, e14a2 (b3a2) 0.1192%, e1a2 <0.0032%. 06/24/2020:. : BCR/ABL e13a2 (b2a2) 0.0153%, e14a2 (b3a2) 0.0766%, e1a2 <0.0032%. 07/12/2020: Mr. Damian was complaining fatigue, shortness of breath of 2 to 3 weeks duration. Chest x-ray, EKG and echocardiogram were normal. 08/01/2020: Sprycel was decreased to 70 mg p.o. daily 08/26/2020: : BCR/ABL e13a2 (b2a2) 0.0032%, e14a2 (b3a2) 0.0608%, e1a2 <0.0032%. 10/07/2020: : BCR/ABL e13a2 (b2a2) 0.0032%, e14a2 (b3a2) 0.1956%, e1a2 <0.0032%. 12/27/2020: : BCR/ABL e13a2 (b2a2) 0.0032%, e14a2 (b3a2) 0.2948%, e1a2 <0.0032%. 01/23/2021: Sprycel increased 100 mg p.o. daily. 03/01/2021: Sprycel was discontinued due to bilateral eye redness, itching, dryness, blurry vision. 03/04/2021: Bilateral redness of the eye resolved. 03/24/2021: BCR/ABL e13a2 less than 0.0032%, e14a20.0559%, E182 less than 0.0032%. 04/03/2021: Patient was started on imatinib 400 mg p.o. daily. 05/14/2021: Imatinib discontinued due to persistent diarrhea and abdominal pain. 05/16/2021: Sprycel 70 mg p.o. daily started. 05/18/2021: BCR/ABL 1 kinase domain did not show any mutations. 11/02/2021: e14a2 transcript 0.3032%. 01/08/2022: FISH normal. No BCR or ABL 1 gene rearrangement observed. 04/17/2022: e14a2 transcript 0.2242% 07/12/2022: e14a2 transcript 0.2998%. 10/15/2022: e14a2 transcrit 0.2719 10/31/2022: Sprycel 70 mg was discontinued due to persistently elevated BCR/ABL transcript levels. 11/23/2022: Patient was started on Tasigna 300 mg p.o. twice daily. 12/10/2022: Mr. Damian stopped taking Tasigna due to persistent headaches, stomach pains blurring of vision, constipation as well as joint pains. 10/11/2023: BCR/ABL transcript levels negative. (Less than 0.0032%) 10/24/2023 MRI of the lumbar spine with IV contrast 10/29/2023: CT scan of the chest abdomen and pelvis with and without contrast PAST MEDICAL HISTORY: OTHER MEDICAL HISTORY/CONDITIONS: FAMILY HISTORY: SOCIAL HISTORY: MEDICATIONS: 1. cimetidine - 300 mg 1 tab As directed 2. multivitamin - 1 tab Daily 3. naproxen - 375 mg 1 tab Twice a Day 4. SpryceL - 70 mg 1 tab Daily Medications Last Reconciled by Marion Salamanca MA on 08/24/2024 ALLERGIES: No Known Drug Allergies REVIEW OF SYSTEMS: A complete 14-point review of systems was performed and is negative except as noted in interval history. PHYSICAL EXAMINATION: VITAL SIGNS: Temperature?99.5, B/P?123/82, Oxygen?Saturation?98% Weight?195?lbs PAIN: 0 - No pain ECOG Performance Status: 0 - Asymptomatic and fully active GENERAL APPEARANCE: Appears well, in no apparent distress, appropriately interactive. HEENT: Normocephalic, no temporal wasting, normal conjunctiva, no scleral icterus, normal hearing, lips without lesions, neck normal range of motion. CARDIOVASCULAR: Not assessed. PULMONARY: Normal respiratory effort, no respiratory distress or use of accessory muscles, speaking in full sentences, no tachypnea. EXTREMITIES: No pedal edema or cyanosis. SKIN: Normal skin appearance. NEUROLOGIC: Alert and oriented x4. PSHYCHIATRIC: Appropriate affect, mood normal, behavior normal, intact thought and speech. LABORATORY DATA: I have personally reviewed and interpreted each of the patient?s relevant lab tests, abnormal findings are below: Date 05/12/24 07/22/24 ??WHITE?BLOOD?COUNT?(Thou/mm3) ? 4.8 ??RED?BLOOD?COUNT?(Miln/mm3) ? 3.97?L ??HEMOGLOBIN?(gm/dl) ? 12.3?L ??HEMATOCRIT?(%) ? 36.1?L ??PLATELET?COUNT?(Thou/mm3) ? 189 ??NEUTROPHILS?%,?AUTO?(%) ? 53 ??LYMPH?%,?AUTO?(%) ? 30 ??NEUTROPHILS,?AUTO?(Thou/mm3) ? 2.5 ??GLUCOSE,RANDOM?(mg/dL) 118?H 123?H ??BLOOD?UREA?NITROGEN?(mg/dL) 14 16 ??CREATININE?(mg/dL) 0.80 0.90 ??SODIUM?(mmol/L) 145 144 ??POTASSIUM?(mmol/L) 4.3 4.4 ??CHLORIDE?(mmol/L) 109?H 107 ??CrCl?(CandG)?(ml/min) 98.83 86.29 ??AST/SGOT?(Unit/L) 31 33 ??ALT/SGPT?(Unit/L) 41 47 ??ALKALINE?PHOSPHATASE?(Unit/L) 43?L 50 ??BILIRUBIN,?TOTAL?(mg/dL) 0.5 0.4 ??PROTEIN?TOTAL?(gm/dl) 6.5 6.9 ??ALBUMIN,?SERUM?(gm/dl) 4.4 4.4 ??GLOBULIN?(gm/dl) 2.1?L 2.5 ??ALBUMIN/GLOBULIN?RATIO 2.1 1.8 ??CALCIUM,?SERUM?(mg/dL) 9.4 8.8 ??CALCIUM?SERUM?(CORRECTED)?(mg/dL) 9.4 8.8 ??LDH,?TOTAL?(Unit/L) ? 180 ASSESSMENT/PLAN: . Assessment and Plan: Louis Damian is a patient with chronic myeloid leukemia (CML) on Sprycel therapy, presenting for follow-up of his condition and medication management. Chronic Myeloid Leukemia (CML) Assessment: Patient has been diagnosed with CML and is currently on Sprycel therapy. Recent BCR-ABL1 levels have shown improvement, decreasing from 0.1 to 0.038, suggesting better medication adherence. The patient was previously non- compliant with medication but is now reported to be taking Sprycel daily. DaTscan results were negative, indicating no evidence of disease progression or complications. Plan: - Continue Sprycel at current dose - Obtain new blood work to monitor BCR-ABL1 levels - Follow-up appointment after new blood work to assess treatment response and medication adherence - Patient education provided on the importance of consistent medication adherence Gastroesophageal Reflux Disease (GERD) Assessment: Patient has a history of GERD, previously managed with omeprazole. The medication was changed due to concerns about calcium absorption. Cimetidine was prescribed as an alternative, but there are potential drug interactions with Sprycel. Plan: - Discontinue cimetidine due to potential interaction with Sprycel - Patient to take cimetidine in the morning (7 AM) and Sprycel in the afternoon (1-2 PM) to minimize interaction - Educate patient on timing of medications to avoid interactions - Consider alternative GERD management strategies if symptoms persist Calcium and Vitamin D Supplementation Assessment: Patient is currently taking calcium and vitamin D supplements. There are concerns about the timing and absorption of these supplements in relation to other medications. Plan: - Adjust timing of calcium and vitamin D supplementation to nighttime with dinner - Educate patient to take supplements with fatty foods (e.g., olive oil, butter, cream, milk) to improve absorption - Instruct patient to separate calcium and vitamin D intake from Sprycel and cimetidine Continue Sprycel 70 mg p.o. daily. CBC CMP BCR-ABL ORDERS: Order # Description RETURN TO CLINIC: BILLING AND COMPLIANCE: I reviewed external records from providers outside my specialty as summarized above. I spent a total of 50 minutes on this patient?s care on the day of their visit excluding time spent related to any billed procedures. This time includes time spent with the patient as well as time spent documenting in the medical record, reviewing patients records and tests, obtaining history, placing orders, communicating with other healthcare professionals, counseling the patient, family or caregiver, and/or care coordination for the diagnoses above. Electronically Signed by: {Object.Sanct_ID*PnP.NameFL@M}, {Object.Sanct_ID*PnP.Suffix@U} D: {Object.Sanct_Date} T: {Object.Sanct_Time} CC: Christal?Keila,? PCP: Christal Pedraza Referring: Christal Pedraza This document was completed utilizing speech recognition software. Grammatical errors, random word insertions, pronoun errors, and incomplete sentences are an occasional consequence of this system due to software limitations, ambient noise, and hardware issues. Any formal questions or concerns about the content, text or information contained within the body of this dictation should be directly addressed to the provider for clarification.
== END 2024-09-07 23:59 | disposition home or self-care (01) ==
LOC: SCTC 15:45
PROVIDERS: PCP Physician Assistant; Referring Provider Physician Assistant; Visit Provider Internal Medicine Hematology & Oncology
DX: C92.10 Chronic myeloid leukemia, BCR/ABL-positive, not having achieved remission (principal); K21.9 Gastro-esophageal reflux disease without esophagitis; I86.1 Scrotal varices
CPT/HCPCS: 99212; G0463

== ENCOUNTER → 2025-01-28 | Outpatient (CLI) | payer BC, SELFPAY ==
--- NOTE | 2025-01-28 10:22 | ECHO_ITS ---
Patient Info Name: Louis Hooker Age: 64 years : 1960 Gender: Male Ht: 165 cm Wt: 91 kg BSA: 2.07 m2 BP: 144 / 76 mmHg HR: 72 bpm Exam Date: 01/28/2025 10:35 AM Admit Date: 01/28/2025 Site: [facility] Room Number: echo Patient Status: O Technical Quality: Fair Exam Type: CA echo doppler complete Decision Support Analyst: Lorna John Ordering Physician: Juancarlos Carlos Referring Physician: Juancarlos Carlos Study Info Indications ELEVATED WHITE BLOOD CELLS COUNT, (LEUKOCYLOSIS) - Primary Location: SDIM Left Ventricular Outflow Tract Name Value Normal LVOT 2D LVOT Diameter 2.0 cm LVOT Doppler LVOT Peak Velocity 94 cm/s LVOT Mean Gradient 2 mmHg LVOT VTI 21 cm LVOT VTI/AV VTI Ratio 0.5 LVOT Stroke Volume 67 ml Pulmonic Valve Name Value Normal PV Doppler PV Peak Velocity 91 cm/s Mitral Valve Name Value Normal MV Doppler MV Decel Esmeralda 297 cm/s2 MV PHT 74 ms MV Area (PHT) 3.0 cm2 4.0-5.0 MV Diastolic Function MV E Peak Velocity 75 cm/s MV A Peak Velocity 84 cm/s MV E/A 0.9 MV Annular TDI MV Lateral e' Velocity 13.8 cm/s MV E/e' (Lateral) 5.4 Tricuspid Valve Name Value Normal TV Regurgitation Doppler TR Peak Velocity 176 cm/s Estimated PAP/RSVP RA Pressure 3 mmHg <=5 PA Systolic Pressure 15 mmHg <36 RV Systolic Pressure 15 mmHg <36 Aortic Valve Name Value Normal AV 2D/MM AV Cusp Sep (MM) 0.9 cm AV Doppler AV Peak Velocity 222 cm/s AV Mean Gradient 11 mmHg AV VTI 42 cm AV Area (Cont Eq VTI) 1.6 cm2 >=3.0 AV Area (Cont Eq Cornelius) 1.3 cm2 AV DI (Cornelius) 0.42 AV Regurgitation 2D LVOT Area 3.1 cm2 Ventricles Name Value Normal LV Dimensions 2D/MM IVS Diastolic Thickness (2D) 0.8 cm 0.6-1.0 LVID Diastole (2D) 4.5 cm 4.2-5.8 LVIW Diastolic Thickness (2D) 1.1 cm 0.6-1.0 LVID Systole (2D) 3.0 cm 2.5-4.0 LVOT Diameter 2.0 cm LV Mass (2D Cubed) 142.89 g 88.00-224.00 LV Mass Index (2D Cubed) 69 g/m2 49-115 Relative Wall Thickness (2D) 0.49 <=0.42 IVS/LVIW Diastolic Thickness (2D) 0.73 0.00-1.50 LV Fractional Shortening/Ejection Fraction 2D/MM LV Fractional Shortening (2D) 33 % 25-43 LV EF (2D Teichholz) 62 % Atria Name Value Normal LA Dimensions LA Volume (4C A-L) 46 ml LA Volume (BP A-L) 45 ml Left Ventricle Left ventricular chamber dimension is normal. Left ventricular systolic function is normal with visually estimated ejection fraction of 60-65%. There is concentric remodeling noted in the left ventricle. Left ventricular segmental wall motion is normal. There is grade I diastolic dysfunction in the left ventricle. Right Ventricle Right ventricular chamber dimension is normal. Right ventricular systolic function is normal. Left Atrium Left atrial chamber dimension is normal. Right Atrium Right atrial chamber dimension is normal. Aortic Valve The aortic valve is trileaflet. There is mild aortic valve sclerosis. There is no aortic valve stenosis with a peak velocity of 222 cm/s, mean gradient of 11 mmHg, and aortic valve area of 1.6 cm2. There is no aortic valve regurgitation. Pulmonic Valve The pulmonic valve is normal. There is no pulmonic valve stenosis. There is no pulmonic regurgitation. Mitral Valve The mitral valve has thickened leaflets. There is no mitral valve stenosis. There is trace mitral valve regurgitation. Tricuspid Valve The tricuspid valve leaflets are normal. There is no tricuspid valve stenosis. There is trace tricuspid valve regurgitation. No pulmonary hypertension, estimated pulmonary arterial systolic pressure is 15 mmHg and systemic blood pressure of 144 mmHg in systole. Pericardium/Pleural The pericardium appears normal. There is no pericardial effusion. No pleural effusion visualized. Inferior Vena Cava Normal inferior vena cava with >50% collapse upon inspiration consistent with normal right atrial pressure, 3 mmHg. Aorta The aortic measurements are indexed to age and body surface area. The aortic root at the sinus of Valsalva is not well visualized. The prox ascending aorta is not well visualized. Summary 1. Left ventricle size is normal and systolic function is normal. Estimated ejection fraction is 60-65%. There is grade I diastolic dysfunction. 2. Right ventricle chamber size is normal and systolic function is normal. Estimated RVSP is 15 mmHg. 3. There is mild aortic valve sclerosis with no stenosis. 4. There is trace mitral valve regurgitation. 5. The mitral valve has thickened leaflets. 6. There is trace tricuspid valve regurgitation. 7. Normal IVC with estimated RA pressure 3 mmHg. 8. No evidence of vegetations. Report Signatures Finalized by Shell Calvert on 01/28/2025 01:06 PM
== END | disposition home or self-care (01) ==
LOC: SDIM 10:06
PROVIDERS: PCP Physician Assistant; Referring Provider Internal Medicine Hematology & Oncology; Visit Provider Internal Medicine Hematology & Oncology
DX: I50.30 Unspecified diastolic (congestive) heart failure (principal); I35.8 Other nonrheumatic aortic valve disorders; I08.1 Rheumatic disorders of both mitral and tricuspid valves
CPT/HCPCS: 93306

== ENCOUNTER → 2025-03-08 | Outpatient (CLI) | payer BC, SELFPAY ==
[2025-03-08 08:35] LABS: Basophils # (Auto) 0.0 Thou/mm3 (0.0-0.2); Basophils % (Auto) 0 % (0-2.5); Eosinophils # (Auto) 0.1 Thou/mm3 (0.0-0.5); Eosinophils % (Auto) 2 % (0-10); Hematocrit 38.5 % (41.0-53.0); Hemoglobin 12.8 g/dL (13.5-16.0); Immature Granulocytes Auto 0.02 Thou/mm3 (0.00-0.00); Lymphocytes # (Auto) 3.2 Thou/mm3 (1.0-4.8); Lymphocytes % (Auto) 39 % (10-50); Mean Corpuscular HGB Conc 33.2 g/dl (31.0-37.0); Mean Corpuscular Hemoglobin 30.6 pg (25.0-35.0); Mean Corpuscular Volume 92 fL (80-100); Monocytes # (Auto) 1.0 Thou/mm3 (0.0-0.8); Monocytes % (Auto) 12 % (0-12); Neutrophils # (Auto) 3.9 Thou/mm3 (1.8-7.7); Neutrophils % (Auto) 47 % (37-80); Nucleated Red Blood Cell # 0.00 Thou/mm3 (0.00-0.00); Nucleated Red Blood Cell % 0 /100 WBC (0); Platelet Count 194 Thou/mm3 (140-440); RDW Standard Deviation 45.4 fL (35.1-43.9); Red Blood Count 4.18 Miln/mm3 (4.50-5.90); White Blood Count 8.2 Thou/mm3 (3.8-10.6)
[2025-03-08 08:46] LABS: Alanine Aminotransferase 22 U/L (10-49); Albumin, Serum 4.5 gm/dL (3.4-4.8); Albumin/Globulin Ratio 1.7 (1.2-2.2); Alkaline Phosphatase 47 U/L (46-116); Anion Gap 7 (7-16); Aspartate Amino Transferase 28 U/L (0-34); BUN/Creatinine Ratio 16 Ratio (12-20); Bilirubin,Total 0.4 mg/dL (0.3-1.2); Blood Urea Nitrogen 14 mg/dL (9-23); Calcium 9.5 mg/dL (8.3-10.6); Calcium (Corrected) 9.5 mg/dL (8.5-10.1); Carbon Dioxide 28.3 mMol/L (20.0-31.0); Chloride 108 mMol/L (98-107); Creatinine (Component) 0.9 mg/dL (0.6-1.3); Globulin 2.7 gm/dL (2.3-3.5); Glucose 108 mg/dL (74-106); Osmolality,Calculated 286 (275-295); Potassium 4.2 mMol/L (3.4-5.1); Sodium 143 mMol/L (136-145); Total Protein 7.2 gm/dL (5.7-8.2); eGFR > 60 See Note
[2025-03-11 08:52] LABS: BCR-ABL1/ABL1 % IS 0.047 (0.000)
[2025-03-15 07:27] LABS: P210 BCR-ABL1 DETECTED
== END | disposition home or self-care (01) ==
PROVIDERS: PCP Physician Assistant; Referring Provider Internal Medicine Hematology & Oncology; Visit Provider Internal Medicine Hematology & Oncology
DX: D72.829 Elevated white blood cell count, unspecified (principal)
CPT/HCPCS: 36415; 80053; 81206; 85025